=== PATIENT | female | born 1980 | race Caucasian/White ===

== ENCOUNTER 2022-02-17 09:30 | Outpatient (CLI) | payer OTHER, SELFPAY ==
--- NOTE | 2022-02-17 09:45 | CRLHL7_ITS ---
For Patients: As a result of the Century Cures Act, medical imaging exams and procedure reports are released immediately into your electronic medical record. You may view this report before your referring provider. If you have questions, please contact your health care provider. BILATERAL SCREENING MAMMOGRAM WITH COMPUTER-AIDED DETECTION TECHNIQUE: CC and MLO views were obtained. These mammographic images have been obtained using full-field digital technique. These mammographic images were interpreted with the benefit of computer-aided detection. COMPARISON FILM: Baseline. FINDINGS: The breasts are heterogeneously dense, which may obscure small masses IMPRESSION: There is no radiographic evidence for malignancy. ASSESSMENT: BI-RADS Category 1: Negative RECOMMENDATION: Routine screening mammogram in 1 year. A lay language report of this examination will be provided to the patient. Adam Weiss M.D. Diagnostic Radiologist [email or web address] JNU/fareed guerrier/Dictated by: Adam Weiss MD @ 02/18/2022 12:26:00 PM (Electronically Signed)
== END 2022-02-17 09:31 | disposition home or self-care (01) ==
PROVIDERS: PCP Family Medicine
DX: Z12.31 Encounter for screening mammogram for malignant neoplasm of breast (principal)
CPT/HCPCS: 77067

== ENCOUNTER 2024-01-24 19:21 | Emergency (ER) | payer OTHER, SELFPAY ==
[2024-01-24 19:42] VITALS: BP 129/73; PULSE 88; RESP 20; TEMP 36.8; O2SAT 99; BMI 22.4
--- OUTSIDE RECORDS SUMMARY | 2024-01-24 20:46 | XMS_ITS | Clinical Summary ---
Author Organization [facility] Address [place], [place] [address] Care Team Providers Care Chemical Librarian Name Role Phone Corrina Rodriguze MD Unavailable [phone] Juanita Platt MD Primary Care Provider Allergies Active Allergy Reactions Criticality Noted Date Comments Amoxicillin Hives 05/04/2007 Doxycycline 05/04/2007 Tingling finger tips Medications hydrocortisone 2.5% creamIndications:H emorrhoids, external Apply topically to affected area(s) two times daily. 60 g 3 3 Active levothyroxine (SYNTHROID) 150 mcg tabletIndications: Acquired hypothyroidism Take 1 full tablet 5 days a week and take 1/2 tablet 2 days a week (i.e. Wednesday and Wednesday). 90 Tablet 4 Active Active Problems Problem Noted Date Diagnosed Date Pap smear for cervical cancer screening 07/16/19 23 Overview (07/15/2022): 05/2022 NIL/HPV Negative Plan: Pap and HPV due 05/2027 Acquired hypothyroidism 01/01/2015 IBD (inflammatory bowel disease) 03/08/2009 Resolved Problems Problem Noted Date Diagnosed Date Resolved Date care in third trimester 03/15/2015 05/28/2015 care in third trimester 02/21/2015 03/15/2015 care in second trimester 11/07/2014 02/21/2015 care in first trimester 10/03/2014 11/07/2014 Supervision of other normal 03/04/2012 12/08/2012 Overview (04/01/2012): Hx of x 2 Wants repeat hypothyroidism Supervision of normal first 08/23/2007 07/15/2008 Unspecified hypothyroidism 03/15/2007 1 03/03/2014 Encounters Date Type Department Care Team Description 12/09/2023 3:30 PM CDT [facility]/Cl[facility] [address] [place] [address] Immunization/Injection 12/09/2023 Travel from Last 3 Months Immunizations Name Administration Dates Next Due AMB Influenza, IIV3 (Age >=3 years)(Flu Clinic Only) 12/01/2012 AMB Influenza, IIV4 PF (=>6 mos Flulaval,Fluzone Fluarix)(Flu Clinic Only) 12/29/2018,11/27/2017,12/24/2014, 014 COVID-19 VACCINE SPIKEVAX (M ODERNA 50MCG/0.5ML) 12YO+ PFS 12/09/2023 COVID-19 vaccine ([place]atuan-Bio NTech 30mcg/0.3mL) PF, MDV 01/10/2021,06/13/2020,05/22/2020 Hepatitis B (Peds) 09/30/1999,05/01/1999, 000 INFLUENZA, IIV3 PF (AGE >= 6 MO) 12/09/2023 Influenza, IIV3 (Age >=3 years) 12/06/19 21,01/03/2010,01/04/2008, 008 Influenza, IIV4 12/13/2019,01/28/2016 Influenza,CCIIV4 PRESERV FREE 12/25/2021 MMR 06/03/1993 Tdap 01/25/2015,08/09/2012,08/27/2005 Family History Medical History Relation Name Comments Good Health Brother Hypertension Father Cancer-breast Maternal Aunt Heart Disease Maternal Grandfather estima mega 70's Good Health Maternal Grandmother Hypertension Mother Good Health Paternal Grandfather Good Health Paternal Grandmother Relation Name Status Comments Brother Father Maternal Aunt Maternal Grandfather Maternal Grandmother Mother Paternal Grandfather Paternal Grandmother Social History Tobacco Use Types Packs/Day Years Used Date Smoking Tobacco: Never Smokeless Tobacco: Never Tobacco Cessation:Counseling Given: Yes Comments:never Alcohol Use Standard Drinks/Week Comments No 0 (1 standard drink = 0.6 oz pur e alcohol) PHQ-2 Answer Date Recorded PHQ-2 TOTAL SCORE 0 06/10/2022 Social Connections Answer Date Recorded Frequency of Communication with Friends and Fami ly Not on file 06/16/2023 Financial Resource Strain Answer Date R ecorded Difficulty of Paying Living Expenses 3 06/10/2022 Difficulty of Paying Living Expenses Not on file 06/10/2022 Food Insecurity Answer Date Recorded Worried About Running Out of Food in the Last Ye ar 1 06/10/2022 Transportation Needs Answer Date Record ed Lack of Transportation (Medical) 1 06/10/2022 Housing Stability Answer Date Recorded Unable to Pay for Housing in the Last Year 1 06/10/2022 Comments No Sex and Gender Information Value Date Recorded Sex Assigned at Not on file Legal Sex Female 6:32 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 Gender Identity Not on file Sexual Orientation Not on file Occupation Industry Job Start Date Job End Date Not on file Not on file Not on file Not on file Obstetrics History Para Term AB IAB SAB Ectopic Multiple Livin g Live Births 4 4 4 0 0 0 0 0 0 4 4 Date Outcome GA Total Labor Labor/2nd/3rd Weight Sex Type Anes PTL Nasrin A1 A5 Name Clin 03/07 Term 40w 0d 10h 00m/ M C-Sec tion Living Juan 02/19 Term 39w 0d F C-Sec tion Living Salome 10/19 Term 39w 0d M CS-LT ranv Living Martinez 04/05 Term M C-Sec tion Living Last Filed Vital Signs Vital Sign Reading Time Taken Comments Blood Pressure 123/80 06/10/2022 11:32 AM CDT Pulse 87 06/10/2022 11:28 AM CDT Temperature 36.6 C (97.8 F) 01/20/2019 7:24 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 Respiratory Rate - - Oxygen Saturation 100% 06/10/2022 11:28 AM CDT Inhaled Oxygen Concentration - - Weight 56.5 kg (124 lb 9.6 oz) 06/10/2022 11:28 AM CDT Height 164.6 cm (5' 4.8) 06/10/2022 11:28 AM CD T Body Mass Index 20.86 06/10/2022 11:28 AM CDT Plan of Treatment Health Maintenance Due Date Last Done Comments Hepatitis C screening for age 18-79 09/08/1999 BMI (ht and wt on same day) for age 18+ 06/11/2023 06/10/2022, 01/20/2019, 04/13/2017, Additional history exists Depression screening for age 12+ 06/11/2023 06/10/2022, 04/13/2017, 04/13/2017, Additional history exists Tetanus booster 01/25/2025 01/25/2015, 07/17, 08/27/2005 Pap test for age 21-65 06/11/2027 3, 06/10/2022, 04/13/2017, Additional history exists HIV for age 15-65 Completed 10/03/2014, , 08/06/2009, Additional history exists Tdap Completed 01/25/2015, 07/17, 08/27/2005 COVID-19 vaccine series Completed 12/09/19 24, 12/21/2022, 11/01/2021, Additional history exists Influenza for age 9-49 Completed 4, 12/25/2021, 12/05/2020, Additional history exists Pneumococcal series for age 6-64 Aged Out No longer eligible based on patient's age to complete this topic Procedures Procedure Name Priority Date/Time Associated Diagnosis Comments HPV HIGH RISK Routine 06/10/2022 11:58 AM CDT Screening for cervical cancer ANTI HIV 1/2 Routine 10/03/2014 11:03 AM CDT care in first trimester from Last 3 Months or Most Recently Relevant to Health Maintenance Results * HPV HIGH RISK (06/10/2022 11:58 AM CDT) TYPE 16 Negative Negative 06/12/2022 5:07 PM CDT [facility] TYPE 18 Negative Negative 06/12/2022 5:07 PM CDT [facility] OTHER HIGH RISK TYPES Negative Negative 06/12/2022 5:07 PM CDT [facility] Other (Cervical) Non-Blood / Unknown 06/10/2022 11:58 AM CDT 06/11/2022 10:49 AM CDT Narrative [facility] - 06/12/2022 5:07 PM CDT HPV types 16, 18, 31, 33, 35, 39, 45, 51, 52, 56, 58, 59, 66 and 68 DNA were undetectable or below the pre-set threshold. Methodology: Anabel Deepak 4800 HPV Test us Juanita Platt MD MICROBIOLOGY Final Resul t [facility] [address] [place] [address], [place] * ANTI HIV 1/2 [76599.0] (10/03/2014 11:03 AM CDT) HIV-1/HIV-2 ANTIBODY Non-Reacti ve Non-Reacti ve 10/03/2014 4:38 PM CDT [facility] Blood specimen (specimen) BLOOD SPECIMEN / Unknown Venipuncture / Unknown 10/03/2014 11:03 AM CDT 10/03/2014 11:03 AM CDT Narrative [facility] - 10/03/2014 4:38 PM CDT HIV-1 p24 and HIV-1/HIV-2 Ab not detected us José Luis Sanchez MD SEND OUTS Final Re sult [facility] [address] [place] [address], [place] from Last 3 Months or Most Recently Relevant to Health Maintenance Insurance [facility] [employer] Care Teams Chemical Librarian Relationship Specialty Start Date End Date Juanita Platt MD [address] [place] [id number] PCP - General Family Practice 06/10/22 Corrina Rodriguez MD [address] [place] [id number] ONLINE EDUCATION MANAGER Obstetrics and Gynecology 08/09/12
--- NOTE | 2024-01-24 20:47 | ED_ITS ---
HPI - Animal Bite General Chief Complaint: Animal Bite Stated Complaint: Bat exposure Time Seen by Provider: 01/24/24 19:30 Source: patient, family and RN notes reviewed Mode of arrival: ambulatory History of Present Illness HPI narrative: This 43-year-old female is accompanied by his parents in the rest of his family with a bat exposure. Mom was working at the computer in the house on when the dog started going crazy. She thought maybe she saw something flying but then could not find it. Later when the rest the family got home, the search but did not find anything. She originally thought it was a bird. This morning when dad got up to play pickleball at 4:30 a.m., felt a whooshing above his head. He eventually found a bat flying in his children's room. He did catch the bat in did said it free outside. No one has known bite jonatan. No one has been previously immunized for rabies. Kids are upset as they had COVID and influenza vaccines, they thought they were done for the year. We did subsequently find out that [place] [id number] will not allow me to order immunizations, thus, we will allow them to leave and not have services here as they need to check in there due to not enough rabies vaccines here at this moment. MD complaint: possible animal exposure Related Data Home Medications ?Medication ?Instructions ?Recorded ?Confirmed levothyroxine 150 mcg tablet 150 mcg PO DAILY 01/24/24 01/24/24 Allergies Allergy/AdvReac Type Severity Reaction Status Date / Time amoxicillin Allergy Mild Hives Verified 01/24/24 19:45 doxycycline Allergy Mild Hives Verified 01/24/24 19:45 Exam Const: Vital Signs, click to edit/add: Vital Signs - 24 hr 01/24/24 19:42 01/24/24 20:48 Temperature 98.3 F 98.3 F Pulse Rate [Right Pulse Oximeter] 88 88 Respiratory Rate 20 20 Blood Pressure [Ri ght Upper Arm] 129/73 129/73 Pulse Oximetry 99 Oxygen Delivery Me thod Room Air Course Vital Signs Vital signs: Initial Vital Signs Temperature 98.3 F 01/24/24 19:42 Temperature Source Temporal Artery Scan 01/24/24 19:42 Pulse Rate 88 01/24/24 19:42 Respiratory Rate 20 01/24/24 19:42 Blood Pressure 129/73 01/24/24 19:42 Blood Pressure Mean 91 01/24/24 19:42 Blood Pressure Position Sitting 01/24/24 19:42 Pulse Oximetry 99 01/24/24 19:42 Oxygen Delivery Method Room Air 01/24/24 19:42 Vital Signs Temperature 98.3 F 01/24/24 19:42 Pulse Rate 88 01/24/24 19:42 Respiratory Rate 20 01/24/24 19:42 Blood Pressure 129/73 01/24/24 19:42 Pulse Oximetry 99 01/24/24 19:42 Oxygen Delivery Method Room Air 01/24/24 19:42 Temperature 98.3 F 01/24/24 20:48 Pulse Rate 88 01/24/24 20:48 Respiratory Rate 20 01/24/24 20:48 Blood Pressure 129/73 01/24/24 20:48 Pulse Oximetry 99 01/24/24 19:42 Oxygen Delivery Method Room Air 01/24/24 19:42 Discharge Plan Discharge Clinical Impression: Exposure to bat without known bite Patient Disposition: Left Without Being Seen Additional Instructions: Patient will proceed to [address] to receive her rabies immune globulin and rabies vaccine. Patient will not be charged from our ED. Prescriptions: No Action levothyroxine 150 mcg tablet 150 mcg PO DAILY Follow Up/Referrals: José Luis Sanchez MD [Primary Care Provider] -
[2024-01-24 20:48] VITALS: BP 129/73; PULSE 88; RESP 20; TEMP 36.8
== END 2024-01-24 20:48 | disposition left against medical advice (07) ==
LOC: ED 20:44
PROVIDERS: Emergency Provider Family Medicine
DX: Z20.3 Contact with and (suspected) exposure to rabies (principal)
CPT/HCPCS: 99281

== ENCOUNTER 2024-02-07 14:14 | Outpatient (RCR) | payer OTHER, SELFPAY ==
[2024-01-27] MEDS: RABIES VACCINE (RABAVERT) 2.5 UNIT IM (16:30)
[2024-01-27 16:54] VITALS: RESP 18
[2024-01-31 16:18] VITALS: PULSE 76; RESP 18; O2SAT 99
[2024-01-31] MEDS: RABIES VACCINE (RABAVERT) 2.5 UNIT IM (16:26)
[2024-02-07 14:36] VITALS: BP 113/77; PULSE 75; RESP 16; TEMP 36.8; O2SAT 97
[2024-02-07] MEDS: RABIES VACCINE (RABAVERT) 2.5 UNIT IM (14:38)
== END 2024-02-07 14:44 | disposition home or self-care (01) ==
PROVIDERS: PCP Family Medicine; Visit Provider Family Medicine
DX: Z20.3 Contact with and (suspected) exposure to rabies (principal); Z23 Encounter for immunization
CPT/HCPCS: 80307; 90471; 90675

== ENCOUNTER 2024-06-26 06:22 | Day surgery (SDC) | payer OTHER, SELFPAY ==
[2024-06-26] VITALS (21 sets, daily range): BP systolic 116–139; BP diastolic 65–90; PULSE 69–88; RESP 15–16; TEMP 37; O2SAT 98–100; BMI 21.9
[2024-06-26] MEDS: BUPIVACAINE 0.5% 30 ML INJECTION (07:00)
[2024-06-26] MEDS: LIDOCAINE 1% MDV INJECTION (07:00)
[2024-06-26] MEDS: ETHYL CHLORIDE 1 APPLICATION 1 APPLIC TOPICAL (07:00)
--- NOTE | 2024-06-26 08:32 | SUR.OPER ---
tournicot applied onto finger at 0733 and removed at 0833
[2024-06-26] MEDS: BACITRACIN OINTMENT BULK TUBE 1 APPLIC TOPICAL (08:45)
--- NOTE | 2024-06-26 10:24 | P.ORPRC_ITS ---
Procedure Note Date of procedure: 06/26/24 Procedure: PREOPERATIVE DIAGNOSIS: 1. Right small finger distal phalangeal region, volar aspect foreign body (glass) She to POSTOPERATIVE DIAGNOSIS: 1. Right small finger distal phalangeal region, volar aspect foreign body (glass) PROCEDURE: 1. Right small finger foreign body or removal (small piece of glass), complicated due to miniscule size and clear appearance and not readily visible on fluoroscopy. 2. Intraoperative fluoroscopy up to 1 hour. C-arm fluoroscopy operated by Fermin Pack M.D. for intraoperative foreign body discovery/confirmation of removal. 1 C-arm spot images were saved/sent to PACS. Fluoroscopy time was 19 seconds. SURGEON: Fermin Pack MD. ENAMEL PULVERIZER: Chris Trevino PA-C - Of note, an assistant account executive was critical for this case to aid in patient positioning, tissue retraction, limb manipulation/positioning, and closure. ANESTHESIA: Local anesthetic (50:50 mixture of 1% lidocaine plain and 0.5% marcaine plain) IMPLANTS: None TOURNIQUET: And minutes at 225 torr COMPLICATIONS: None evident INDICATIONS: The patient is a pleasant 43-year-old female who reports that she was washing a crock pot lid unfortunately it shattered her sink. She was trying to clean out the pieces and felt a sharp fragment in the volar aspect of her finger. She did not see a clear laceration and therefore thought it was simply an in and out. However, over the course of the next 1 month the pain persisted if not worsened the touch. She never developed redness or signs/symptoms of infection. Rather, it with sensitivity to pressure. An x-ray was obtained and revealed a suspicious radiodense foreign body object that was felt to be possibly fragment of glass. Nonoperative management has been tried but unsuccessful. Given the failure of nonoperative management, and how this affects daily life, surgery was recommended. DESCRIPTION OF PROCEDURE: Following a thorough discussion of risks, benefits, and alternatives consent was obtained and the operative extremity was marked. The patient was brought to the operating room and placed supine on the operating table. No antibiotics were administered as this was planned to be a local case only. Proper time-out was performed identifying proper patient, site, and procedure. The operative extremity was prepped and draped in the appropriate sterile fashion using ChloraPrep. The limb was exsanguinated and the tourniquet inflated. A longitudinal incision was made over the distal phalanx right small finger volar aspect consistent with with the patient preoperatively noted she felt the pressure and pain. It was relatively mid volar aspect. Sharp incision through the skin and blunt dissection to subcutaneous tissue did not readily reveal any foreign body. We attempted use mini C-arm fluoroscopy during the case to identify this suspected glass foreign body but were not able to clearly visualize the foreign body. Dissection continued bluntly along with trying to palpate both with our own finger as well as with another instrument. Approximately 45-50 minutes was needed to finally identify extremely miniscule jackelyn of glass. We were able to remove this. Further palpation did not reveal any other objects. Thorough irrigation normal saline was performed. At this stage, the tourniquet was deflated and hemostasis achieved. Closure was performed with 4-O nylon. Soft dressings were applied, and the patient was awoken/transferred to the re covery room in stable condition. PLAN: 1. Encourage elevation of the operative extremity. 2. Range of motion of the operative extremity/digits as tolerated. 3. Ibuprofen & acetaminophen as needed for pain. 4. Follow up with PA visit in 12-16 days for wound check and suture removal.
== END 2024-06-26 09:04 | disposition home or self-care (01) ==
LOC: OR 06:23
PROVIDERS: PCP Family Medicine; Visit Provider Orthopaedic Surgery Sports Medicine
PROC: (CPT 10121; principal; 2024-06-26 07:15)
DX: M79.5 Residual foreign body in soft tissue (principal); W45.8XXA Other foreign body or object entering through skin, initial encounter; W25.XXXA Contact with sharp glass, initial encounter; Y93.G1 Activity, food preparation and clean up; Y92.000 Kitchen of unspecified non-institutional (private) residence as the place of occurrence of the external cause
CPT/HCPCS: 10121; 73140; 76000; J2003; J0665